=== PATIENT | male | born 1955 | race Caucasian/White ===

== ENCOUNTER → 2017-04-02 | Outpatient (CLI) | payer OTHER ==
[~2017-04-02] MED LIST: FISH OIL 1,001000 M2 PO; GLUCOPHAGE1000 MG PO; GLYBURIDE 5 MG T5 M1 PO; LEVEMIR SUBQ; LISINOPRIL-HCT1 EAC1 PO; SENOKOT-S1 TA1 PO; SIMVASTATIN20 MG PO
== END ==
LOC: M.RAD 09:38
DX: R91.1 Solitary pulmonary nodule (principal)

== ENCOUNTER → 2017-04-04 | Outpatient (CLI) | payer OTHER | LOC: M.CT 12:32 | DX: R91.1 Solitary pulmonary nodule (principal); J98.4 Other disorders of lung ==

== ENCOUNTER → 2017-07-10 | Outpatient (CLI) | payer OTHER | LOC: M.CT 08:08 | DX: J18.8 Other pneumonia, unspecified organism (principal); R06.09 Other forms of dyspnea; K76.0 Fatty (change of) liver, not elsewhere classified; I70.90 Unspecified atherosclerosis ==

== ENCOUNTER → 2019-07-30 | Outpatient (CLI) | payer MEDICARE | LOC: M.RAD 11:36 | DX: R06.02 Shortness of breath (principal) ==